=== PATIENT | female | born 1960 | race Two or more races ===

== ENCOUNTER 2018-10-23 02:42 | Inpatient (IN) | payer MEDICARE ==
[~2018-10-23] VITALS: Ht 157.5 cm; Wt 69.4 kg
[2018-10-23 06:10] VITALS: BP 149/90
[2018-10-23] MEDS ORDERED: Z GUARD REMEDY 2 OZ OINT TP PRN (06:30)
[2018-10-23] MEDS ORDERED: ACETAMINOPHEN 325 MG TABLET PO PRN (06:30)
[2018-10-23] MEDS ORDERED: ONDANSETRON HCL/PF 4 MG/2 ML VIAL IVP PRN (06:30)
[2018-10-23] MEDS ORDERED: HYDROCODONE/APAP 5/325MG 1 EACH TABLET PO PRN (06:30)
[2018-10-23] MEDS ORDERED: MAGNESIUM HYDROXIDE 30 ML UDC PO PRN (06:30)
[2018-10-23] MEDS ORDERED: ZOLPIDEM TARTRATE 5 MG TABLET PO PRN (06:30)
[2018-10-23 07:19] LABS: CALCIUM, SERUM 8.7 mg/dL (8.5-10.1); POTASSIUM 3.9 mmol/L (3.5-5.1)
[2018-10-23 07:29] LABS: BASOPHILS # (AUTO) 0.1 /CMM (0.0-0.2); BASOPHILS % (AUTO) 0.8 % (0.0-2.0); HEMATOCRIT 33 % (33-45); HEMOGLOBIN 10.2 g/dL (11.5-14.8); LYMPHOCYTES % (AUTO) 32.4 % (20.0-44.0); MEAN CORPUSCULAR HGB CONC 31 g/dl (31.0-36.0); MEAN CORPUSCULAR VOLUME 72 fL (82-100); MONOCYTES # (AUTO) 0.4 /CMM (0.1-1.30); MONOCYTES % (AUTO) 5.8 % (2.0-12.0); NEUTROPHILS # (AUTO) 3.8 /CMM (1.8-8.9); PLATELET COUNT (AUTO) 613 /CMM (150-450); RED BLOOD CELL COUNT(AUTO) 4.58 MIL/uL (4.0-5.2); WHITE BLOOD COUNT (AUTO) 6.3 K/uL (4.3-11.0)
[2018-10-23 07:30] LABS: ALBUMIN 3.4 g/dL (3.4-5.0); BILIRUBIN,TOTAL 0.4 mg/dL (0.2-1.0)
[2018-10-23] MEDS ORDERED: BLOOD SUGAR DIAGNOSTIC 1 EACH STRIP IN SCH (07:30)
--- NOTE | 2018-10-23 07:51 | NUR ---
RN AM SHIFT NOTE RECEIVED PATIENT FROM NIGHT NURSE, ALERT AND ORIENTED TO NAME AND LOCATION, A&OX2. MALAGASY SPEAKING, 18 GAUGE IV PATENT AND INTACT, BED LOW TO GROUND, MÉNDEZ CATH PATENT AND DRAING WELL. FOLLOW UP WITH FAMILY PER NIGHT NURSE REGARING THE NEED FOR LOVENOX INJECTIONS; FAMILY IS REQUESTING THEY ARE STOPPED PT HAS HISTORY OF DVT Addendum: 10/23/18 at 5455 by DINESH REESE RN NOTE TO [facility] PREVIOUS NURSING NOTE WRONG PATIENT
--- NOTE | 2018-10-23 07:52 | NUR ---
RN NOTES DIRECT ADMIT FROM [place] COMPLAINED OF LEFT SIDED NUMBNESS FROM LEFT SIDE OF THE FACE TO BACK OF THE NECK, HEADACHE AND NAUSEA PRESENT IN [place]. ADMIT BY ANGELA R/O STROKE. NO DEFICIENCY PRESENT. BUE AND BLE AROM, WITH MULTIPLE MEDICAL HX. ALLERGIC TO TOPAMAX, ASPERTINE, BEES AND RED ANTS. NO ACUTE RESPIRATORY DISTRESS IN ROOM AIR. AOX 4 ABLE TO MAKE KNOWN NEEDS AND TELLS STORY ABOUT HER ILLNESS AND PAST MEDICAL HISTORY. PER PATIETN SHE CAMN AMBULATE TO THE BATHROOM. COMPLAIN OF PAIN ON LEFT AC IV SITE PALCED LEFT EXTERNAL JUGULAR G 20 INTACT WITH GOOD BLOOD RETURN. VSS TEMP 98.1 RESP 18, BP 149/90 SATURATION 100%. NSR ON TELE MONITOR. KEPT PT CLEAN AND COMFORTABLE IN BED. ENDORSED CONTINUITY OF CARE TO AM NURSE.
--- NOTE | 2018-10-23 07:55 | NUR ---
RN AM SHIFT NOTE PATIENT RECEIEVED FROM NIGHT NURSE ALERT AND ORIENTED, ABLE TO VERBALIZE COMMANDS AND IS AMBULATORY, NIGHT ICU NURSE PLACED RIGHT JUGULAR IV SITE, ALE HAS POWER OF BITE BLOCK MAKER LUIZA [phone], CALL TO FOLLOW UP. SAFETY MEASURES IN PLACE, CALL LIGHT WITHIN REACH, SIDE RAILS UP, BED IN LOW POSITION.
[2018-10-23 08:00] VITALS: BP 142/78
[2018-10-23 08:04] LABS: THYROID STIMULATING HORMONE 6.814 uIU/mL (0.358-3.74)
[2018-10-23] MEDS ORDERED: FOLI1TAB16 PO (08:09)
[2018-10-23] MEDS ORDERED: HYDR200T81 PO (08:09)
[2018-10-23] MEDS ORDERED: BACL10TA PO (08:09)
[2018-10-23] MEDS ORDERED: GABA-534 PO (08:09)
[2018-10-23] MEDS ORDERED: ONDA4TAB5 PO (08:09)
[2018-10-23] MEDS ORDERED: BIOT10006 PO (08:09)
[2018-10-23] MEDS ORDERED: LEVO75TA7 PO (08:09)
[2018-10-23] MEDS ORDERED: QUET25TA PO (08:09)
[2018-10-23] MEDS ORDERED: DOCU-141 PO (08:09)
[2018-10-23] MEDS ORDERED: ALPR0.5T8 PO (08:09)
[2018-10-23] MEDS ORDERED: DESI50TA PO (08:09)
[2018-10-23] MEDS ORDERED: CARI350T27 PO (08:09)
[2018-10-23] MEDS ORDERED: ASPI-1169 PO (08:09)
[2018-10-23] MEDS ORDERED: LAMO200T PO (08:09)
[2018-10-23] MEDS ORDERED: BISA5TAB10 PO (08:09)
[2018-10-23] MEDS ORDERED: ASPIRIN 81 MG TAB.CHEW PO SCH (09:00)
[2018-10-23 12:00] VITALS: BP 132/79
--- NOTE | 2018-10-23 12:16 | NUR ---
CHARGE NOTES DC TELEMETRY PER DR. ROSSI
[2018-10-23] MEDS: BLOOD SUGAR DIAGNOSTIC 1 EACH STRIP IN SCH ×2 (12:56→18:31)
--- NOTE | 2018-10-23 14:08 | NUR ---
TEXTED DR. REIS FOR MRI APPROVAL.
[2018-10-23 15:11] LABS: APPEARANCE,URINE SL CLOUDY (CLEAR); BILIRUBIN,URINE NEGATIVE (NEGATIVE); BLOOD, URINE NEGATIVE Ery/uL (NEGATIVE); COLOR,URINE YELLOW (YELLOW); KETONES,URINE 1+ (NEGATIVE); LEUKOCYTE ESTERASE ,URINE NEGATIVE (NEGATIVE); NITRITE, URINE POSITIVE (NEGATIVE); PROTEIN,URINE NEGATIVE (NEGATIVE); UGLUCOSE NEGATIVE (NEGATIVE); UROBILINOGEN,URINE 0.2 EU/dL (0.2)
[2018-10-23 15:23] LABS: BACTERIA,URINE Moderate /HPF (None Seen); RBC,URINE 0-2 /HPF (0-2); SQUAMOUS EPITHELIAL CELL,UR Few /HPF (None Seen); WBC,URINE 0-2 /HPF (0-3)
[2018-10-23 16:00] VITALS: BP 133/81
[2018-10-23] MEDS ORDERED: BISACODYL (5 MG) 5 MG TABLET.DR PO PRN (16:00)
[2018-10-23] MEDS ORDERED: BACLOFEN (10 MG) 10 MG TABLET PO SCH (17:00)
[2018-10-23] MEDS ORDERED: CARISOPRODOL 350 MG TABLET PO SCH (17:00)
[2018-10-23] MEDS ORDERED: DOCUSATE SODIUM 100 MG CAPSULE PO SCH (17:00)
[2018-10-23] MEDS ORDERED: NAPROXEN 250 MG TABLET PO SCH (18:00)
[2018-10-23] MEDS ORDERED: NAPROXEN 250 MG TABLET PO PRN (18:30)
[2018-10-23 20:00] VITALS: BP 149/86
[2018-10-23] MEDS ORDERED: LamoTRIgine 100 MG TABLET PO SCH (21:00)
[2018-10-23] MEDS: GABAPENTIN 300 MG CAPSULE PO SCH ×2 (22:00→22:06)
[2018-10-23] MEDS: DESIPRAMINE HCL 10 MG TABLET PO SCH ×2 (22:00→22:07)
[2018-10-23] MEDS: ATORVASTATIN 10 MG TABLET PO SCH ×2 (22:00→22:05)
[2018-10-23] MEDS ORDERED: GABAPENTIN 300 MG CAPSULE PO SCH (22:00)
[2018-10-23] MEDS: BACLOFEN (10 MG) 10 MG TABLET PO SCH ×2 (22:00→22:05)
[2018-10-23] MEDS: QUETIAPINE FUMARATE 25 MG TABLET PO SCH ×2 (22:00→22:06)
--- NOTE | 2018-10-23 22:20 | NUR ---
RN NOTE DURING 2199 MEDICATION ADMINISTRATION PATIENT STATED" THIS IS NOT MY MEDICATION THAT I GAVE TO THE MORNING NURSE, MY PILLS ARE BLUE COLOR AND I AM GOING HOME NOW". ACCORDING TO THE PATIENT, SHE LEFT HER OWN MEDICATION WITH THE MORNING NURSE AND MORNING NURSE TOOK MEDICATIONS TO THE PHARMACY AND SHE SUPPOSED GET EXACTLY THE SAME COLOR OF THE PILLS THAT SHE HAD BEFORE. PATIENT BECAME VERY ANXIOUS AND UPSET. PATIENT REFUSED TO TAKE ALL HER PM MEDS STATING THAT SHE WANTS HER OWN PILLS WHICH WAS SENT TO THE PHARMACY IN THE MORNING. RETURNED PM MEDS TO THE [facility], HOME MED THAT PLACED BY PHARMACY PUT BACK TO [place]. CHARGE NURSE IS BY BEDSIDE. RN AND CHARGE NURSE EXPLAINED ALL RISKS AND BENEFITS, PATIENT STILL REFUSED. IMMEDIATELY NOTIFIED [facility] AND SHE CAME RIGHT AWAY. [facility] EXPLAINED ALL RISKS AND BENEFITS OF LEAVING AGAINST MEDICAL ADVISE, PATIENT STILL REFUSED. ILIANA MILLER NP MADE AWARE IMMEDIATELY AND NO NEW ORDERS GIVEN AT THIS TIME. REMOVED LEFT EXTERNAL JUGULAR IV 20 GAUGE WITH NO SIGNS AND SYMPTOMS OF BLEEDING OR INFECTION. WRIST BAND REMOVED. PATIENT WAS PICKED UP BY FRIEND. ALL BELONGINGS TAKEN BY THE PATIENT AND BELONGING'S LIST SIGNED AND REVIEWED BY THE PATIENT PRIOR TO LEAVING AND AGAINST THE MEDICAL ADVISE DOCUMENT SIGNED AND PLACED IN THE CHART. [facility] PROVIDED COPY OF THE PHARMACY SLIP. ALL SAFETY MEASURES TAKEN.
[2018-10-24] MEDS ORDERED: LEVOTHYROXINE SODIUM 75 MCG TABLET PO SCH (07:30)
--- NOTE | 2018-10-24 08:11 | NUR ---
Social service consult requested by WILLIAM Andino for possible stroke. Pt. is a 58 year old female who was admitted to [facility] in [facility] for possible stroke. SW was unable to assess pt. since pt. left Against Medical Advice last night due to being upset regarding her medications.
[2018-10-24] MEDS ORDERED: FOLIC ACID 1 MG TABLET PO SCH (09:00)
[2018-10-24] MEDS ORDERED: HYDROXYCHLOROQUINE 200 MG TABLET PO SCH (09:00)
[2018-10-24] MEDS ORDERED: ASPIRIN 81 MG TAB.CHEW PO SCH (09:00)
== END 2018-10-23 23:30 | disposition left against medical advice (07) | DRG 69 ==
LOC: TELE1 05:54 → MEDSG1 11:59
PROVIDERS: ADMIT Nurse Practitioner Acute Care; ATTEND Nurse Practitioner Acute Care
DX: G45.9 Transient cerebral ischemic attack, unspecified (principal); E22.1 Hyperprolactinemia; D84.9 Immunodeficiency, unspecified; M32.9 Systemic lupus erythematosus, unspecified; I77.6 Arteritis, unspecified; M35.00 Sjogren syndrome, unspecified; H49.10 Fourth [trochlear] nerve palsy, unspecified eye; F32.9 Major depressive disorder, single episode, unspecified; Z90.49 Acquired absence of other specified parts of digestive tract; E03.9 Hypothyroidism, unspecified
CPT/HCPCS: 36415; 80053-TC; 80305; 81000-TC; 82962-TC; 83880; 84443-TC; 84484-TC; 85025-TC; 85652-TC; 85730-TC; 87081-TC; 87086-TC; 87186-TC; 92611-TC; G0378